=== PATIENT | male | born 1945 | race Caucasian/White ===

== ENCOUNTER → 2024-12-19 | Outpatient (CLI) | payer MEDICARE ==
--- NOTE | 2024-12-19 16:16 | HMCIMG ---
Exam Type: CHEST 2VWS Clinical Information: ENCOUNTER FOR OTHER PREPROCEDURAL EXAMINATION Comparison: None Findings: The lungs are clear of infiltrates. The heart is normal in size. The bony and soft tissue structures of the chest are unremarkable. Impression: Clear lungs.
== END | disposition home or self-care (01) ==
LOC: RAH 15:35
PROVIDERS: ATTEND Family Medicine
DX: Z01.818 Encounter for other preprocedural examination (principal)
CPT/HCPCS: 71046

== ENCOUNTER 2025-01-02 06:05 | Day surgery (SDC) | payer MEDICARE ==
--- NOTE | 2024-12-31 13:50 | EKG ---
[facility] Test Date: 2024-12-31 Test Time: 13:44:53 Pat Name: TREVOR HERRERA Department: [facility] Room: Gender: Male Rental Representative: [id number] : 1945 Requested By: BAUDILIO EDEN Order Number: [id number] Reading MD: Measurements Intervals Ina Rate: 57 P: -36 TN: 210 QRS: -7 QRSD: 94 T: 21 QT: 427 QTc: 417 Interpretive Statements Sinus rhythm No previous ECG available for comparison Please click the below link to view image of tracing.
[2024-12-31 13:53] LABS: BASOPHILS # (AUTO) 0.14 K/uL (0.00-0.20); EOSINOPHILS # (AUTO) 0.43 K/uL (0.00-0.70); EOSINOPHILS % (AUTO) 6.1 % (0.0-8.0); HEMATOCRIT 42.8 % (42-54); IMMATURE GRANULOCYTE ABSOLUTE 0.08 K/uL (0-1); LYMPHOCYTES # (AUTO) 1.4 K/uL (1.0-4.8); LYMPHOCYTES % (AUTO) 20.3 % (21.0-51.0); MEAN CORPUSCULAR HEMOGLOBIN 31.9 pg (27.0-33.0); MEAN CORPUSCULAR HGB CONC 33.4 g/dL (32.0-36.0); MEAN CORPUSCULAR VOLUME 95.5 fL (79-99); MONOCYTES % (AUTO) 14.5 % (3.0-13.0); PLATELET COUNT (AUTO) 262 K/uL (130-400); RED BLOOD CELL COUNT(AUTO) 4.48 MIL/uL (4.50-6.20); RED CELL DISTRIBUTION WIDTH 13.7 % (11.0-15.5); WHITE BLOOD COUNT (AUTO) 7.1 K/uL (4.8-10.8)
[2024-12-31 13:57] VITALS: BP 168/78; PULSE 61; RESP 18; TEMP 97.9
[2024-12-31 14:02] LABS: CREATININE 1.3 mg/dL (0.5-1.3); POTASSIUM 4.2 mmol/L (3.5-5.1)
[2024-12-31 14:05] LABS: INR 1.05 (0.85-1.15); PROTHROMBIN TIME 11.1 SEC (9.6-11.6)
[2024-12-31 14:06] LABS: PARTIAL THROMBOPLASTIN TIME 34.1 SEC (26.3-35.5)
--- NOTE | 2024-12-31 15:55 | NUR ---
RE: MAEVE INFORMED DR EDEN THAT PATIENT TOOK HIS ELIQUIS THIS MORNING AND I INSTRUCTED HIM TO HOLD IT UNTIL AFTER THE SURGERY . NO NEW ORDERS RECEIVED, OK TO PROCEED.
[2025-01-02] VITALS (13 sets, daily range): BP systolic 118–153; BP diastolic 54–82; PULSE 60–80; RESP 12–16; TEMP 97.3–97.8
[~2025-01-02] VITALS: Ht 177.8 cm; Wt 96.0 kg
[~2025-01-02 06:05] MED LIST: APIX2.5T PO; EZET10TA48 PO; GABA-1405 PO; LEVO-70 PO; LISI40TA9 PO; METO-391 PO; NAPR-1194 PO
[2025-01-02] MEDS ORDERED: LACTATED RINGERS 1000ML IV SCH (06:30)
[2025-01-02] MEDS ORDERED: MIDAZOLAM HCL 1 MG/ML 2ML VIAL ONE (06:45)
[2025-01-02] MEDS ORDERED: proPOFol 10 MG/ML 20ML VIAL IV ONE (06:46)
[2025-01-02] MEDS ORDERED: FENTanyl CITRate PF 50 MCG/1 ML 2ML VIAL ONE ×2 (06:46→09:11)
[2025-01-02] MEDS ORDERED: rocuRONium bROMide 10MG/1ML 5ML VL ONE (06:46)
[2025-01-02] MEDS: ceFAZolin SODIUM 2 GM VIAL ONE (06:55)
[2025-01-02] MEDS ORDERED: ondanSETRON 4MG INJ ONE (06:55)
[2025-01-02] MEDS: LACTATED RINGERS 1000ML 1,000 ML IV ONE (06:56)
[2025-01-02] MEDS: CLINDAMYCIN IVPB 900MG/50ML 50 ML IV ONE (06:56)
[2025-01-02] MEDS: CLINDAMYCIN 900MG/6ML INJ IVPB ONE (07:09)
[2025-01-02] MEDS ORDERED: TRAM-543 PO (07:10)
[2025-01-02] MEDS ORDERED: phenylEPHRINE HCL 10 MG/ML 1ML VIAL IV ONE (07:27)
[2025-01-02] MEDS ORDERED: GLYCOPYRROLATE 0.2 MG/ML 5 ML VIAL ONE (07:33)
[2025-01-02] MEDS ORDERED: ePHEDrine SULFate 50 MG/ML AMPULE ONE (07:43)
[2025-01-02] MEDS: BUPIvacaine/PF 0.25% 30ML VIAL IJ ONE (07:43)
[2025-01-02] MEDS ORDERED: NEOSTIGMINE METHYLSULFATE 1MG/ML IV ONE (08:46)
--- NOTE | 2025-01-02 10:55 | NUR ---
Full and complete discharge instructions given to Patient and Family both verbally and in writing. Explained SURGICAL procedure precautions and follow up. Right extremity Neurovascularly intact. Patient has sensation and movement. Daughter and Patient both voiced understanding to his fall risk secondary to his lack of Left great toe and sedation received as well as right wrist and elbow precautions. All questions answered. PIV removed with catheter tip intact. Home with Family W/C to POV.
--- NOTE | 2025-01-02 14:16 | OP ---
Operative Note: DATE OF PROCEDURE: 01/02/25 SURGEON: PRANAY EDEN MD ANIME DESIGNER: Deanna Winn ANESTHESIA: General ANESTHESIOLOGIST/LEAD SALES CONSULTANT: Pablo Villaseñor PREOPERATIVE DIAGNOSIS: Right carpal tunnel syndrome, right cubital tunnel syndrome POSTOPERATIVE DIAGNOSIS: Right carpal tunnel syndrome, right cubital tunnel syndrome PROCEDURE: Right carpal tunnel release, right ulnar nerve transposition ESTIMATED BLOOD LOSS: 2 cc INDICATIONS: 79-year-old male with right hand numbness and tingling with electrodiagnostic evidence of median nerve compression of the wrist and ulnar nerve compression at the elbow. He was failing conservative management of his symptoms. After discussion of the risks, benefits, and alternatives, the patient voluntarily agreed to undergo the aforementioned procedures. DESCRIPTION OF PROCEDURE: Patient was properly identified in the preoperative holding area. Surgical site marking was verified and surgery consent reviewed. The patient was then taken to the operating room and placed in supine position on the OR table. After induction of general anesthesia, preoperative antibiotics were given, all bony prominences were well-padded, and a well padded tourniquet was applied but not inflated at this time. The right upper extremity was then prepped and draped in usual sterile fashion. Surgical timeout was done verifying correct surgery, side, site, and location to be performed. We then began the procedure by exsanguinating the arm using an Esmarch and i nflating a tourniquet to 250 mmHg. We made an approximately 2 cm long incision at the ulnar border of the fourth digit, when flexed, on the midpalmar longitudinal crease. Here we came down sharply through the subcutaneous tissue and using a self retaining retractor as well as ragnelles we could visualize the deep tissue. We then identified the transverse carpal ligament and began to come through this a little bit at a time using a 15 blade with small amounts of pressure being applied. The ligament was then released. We directed our attention proximally where we spread above and below the remaining portion of the transverse carpal ligament to break up any adhesions and using a pair of Metzenbaum scissors we slid proximally and transected and the remaining proximal portion of the transverse carpal ligament. Distally, we placed our retractors to help a show the distal extent of the transverse carpal ligament, and we came through this carefully using a 15 blade until we identified the fat surrounding the palmar arch. We used a [place] elevator palpating both the proximal and distal directions to ensure the entire transverse carpal ligament had been released. We then thoroughly irrigated out this wound with normal saline and injected the surrounding tissue with half percent Marcaine plain. We then focused our attention on the cubital tunnel marking out a bony landmarks and drawing out our incision. We then used a 15 blade to make an approximately 6 cm long incision. Here we dissected carefully through the subcutaneous tissue. Proximally we were able to identify the ulnar nerve and follow this as it traveled through the cubital tunnel. Using our 15 blade we released the tissue overlying the ulnar nerve and cubital tunnel. We then proceeded proximally and distally releasing tight structures overlying the nerve. We then tested for any remaining tight areas using a freer elevator. The elbow was then taken through a range of motion where we noted the ulnar nerve beginning to subluxate out of the cubital tunnel. We then elected to transpose the ulnar nerve. Using a 15 blade we elevated a fascial sling from the flexor pronator mass. The ulnar nerve was freed up from the remaining soft tissue deep to it. A Spring drain was passed around the ulnar nerve to carefully manipulate it. We then checked proximally and distally for appropriate release of soft tissue to prevent any pressure on the nerve in its transposed location. We freed any remaining tight tissue. We then used a 4-0 Vicryl to repair the sling loosely around the ulnar nerves holding it out of the cubital tunnel in an anteriorly transposed position. At this point we thoroughly irrigated out the wound with normal saline and injected the surrounding tissue with half percent Marcaine plain. We then began to repair the tissue here using our 4-0 Vicryl in the subcutaneous tissue and 3-0 Monocryl for the skin. Dermabond was applied over this. Sterile dressing was applied. The hand wound was then closed with 3-0 nylon interrupted simple suture pattern. Soft sterile dressing was applied with Xeroform, 4 x 4's, and Coban. The tourniquet was then deflated. The patient was awakened from anesthesia. There were taken to the recovery room in stable condition. PRANAY EDEN MD January 02, 2025 14:16
== END 2025-01-02 10:58 | disposition home or self-care (01) ==
LOC: DAH 06:05
PROVIDERS: ATTEND Student in an Organized Health Care Education/Training Program
DX: G56.01 Carpal tunnel syndrome, right upper limb (principal); G56.21 Lesion of ulnar nerve, right upper limb; M25.531 Pain in right wrist; M19.90 Unspecified osteoarthritis, unspecified site; I10 Essential (primary) hypertension; E78.00 Pure hypercholesterolemia, unspecified; G62.9 Polyneuropathy, unspecified; Z79.899 Other long term (current) drug therapy; Z90.49 Acquired absence of other specified parts of digestive tract; Z90.89 Acquired absence of other organs; Z96.643 Presence of artificial hip joint, bilateral; Z96.653 Presence of artificial knee joint, bilateral; Z98.890 Other specified postprocedural states; Z82.49 Family history of ischemic heart disease and other diseases of the circulatory system; Z83.3 Family history of diabetes mellitus; Z84.89 Family history of other specified conditions; Z88.0 Allergy status to penicillin; Z88.8 Allergy status to other drugs, medicaments and biological substances; Z79.01 Long term (current) use of anticoagulants
CPT/HCPCS: 80048; 85025; 85610; 85730; 36415; 93005; 64718; 64721; A4663; J7120; J3010 ×2; J0665; J3490 ×4; J2250; J2704; J2405; J2710; J2371; A6204; A6223; A4649 ×2; A4930 ×2; A5120; A4215; A4222; A4221; A4216; A4223 ×2; J0690